=== PATIENT | male | born 2000 | race Caucasian/White ===

== ENCOUNTER 2019-12-01 18:15 | Emergency (ER) | payer BC, SELFPAY ==
--- NOTE | ~2019-12-01 | XR_ITS ---
EXAMINATION: XR wrist RT min 3V INDICATION: Right wrist pain TECHNIQUE: Four views of the right wrist are obtained. COMPARISON: None available FINDINGS: There is no fracture, dislocation, or subluxation. The bones, soft tissues, and joint space s are normal. IMPRESSION: 1. No acute osseous abnormality. Reviewed, dictated and finalized at location A.
--- NOTE | 2019-12-01 18:26 | ED.UPPEXIN ---
HPI - Extremity Injury (Upper) General Chief Complaint: Extremity Injury, Upper Stated Complaint: right wrist pain Time Seen by Provider: 12/01/19 18:26 Source: patient and RN notes reviewed History of Present Illness HPI narrative: Patient is a 19-year-old male that presents the urgent care with complaints of right wrist pain. Patient states he fell at approximately 5 PM this evening while rollerskating. Patient states he has a history of a fracture as well as a right wrist sprain in the past. Patient has been wearing his old wrist splint to the right wrist. Denies any [id number] medication for his pain. No other acute complaints. Denies hitting his head or any loss of consciousness during the fall. No acute distress noted. Patient read the plan of care. Related Data Home Medications Medication Instructions Recorded Confirmed No Home Medications 12/01/19 12/01/19 Allergies Allergy/AdvReac Type Severity Reaction Status Date / Time No Known Allergies Allergy Unverified 05/03/12 16:29 Review of Systems Review of Systems: Narrative: CONSTITUTIONAL: Denies fever, chills, or sweats. EYES: Denies visual changes, redness, or discharge. ENT: Denies rhinorrhea, congestion, sore throat, or otalgia. CARDIOVASCULAR: Denies chest pain, palpitations, or edema. RESPIRATORY: Denies cough or dyspnea. GASTROINTESTINAL: Denies abdominal pain, nausea, vomiting, or diarrhea. GENITOURINARY: Denies dysuria or hematuria. SKIN: Denies rash or itching. MUSCULOSKELETAL: Reports of right wrist pain due to fall NEUROLOGIC: Denies headache, numbness, or weakness. All other systems reviewed are negative, except as documented in HPI. PMFSH Comments At the time of my signature, I reviewed and agree with the nursing past medical, surgical, social, and family history. There is no relevant family history pertinent to the patient complaint. Exam Narrative: Exam Narrative: GENERAL: This is a well-nourished, well-developed patient, in no apparent distress. HEAD: normocephalic, atraumatic. EYES: PERRL. Sclera clear/white. Vision is grossly intact. EARS: External ears normal NOSE: External nose normal with no obvious nasal discharge THROAT: Mucous membranes moist NECK: Neck supple SKIN: Notable abrasion to the ulnar dorsal aspect of the right hand and wrist NEURO: awake, alert, and oriented to person, place and time. There were no obvious focal neurologic abnormalities. EXTREMITIES: No obvious edema, fracture, dislocation, ecchymosis noted to the right wrist. Range of motion within normal limits. Positive strong right radial pulse with capillary refill less than 2 seconds. Course Vital Signs Vital signs: Vital Signs Temperature 97.8 F 12/01/19 18:31 Pulse Rate 70 12/01/19 18:31 Respiratory Rate 18 12/01/19 18:31 Blood Pressure 133/63 12/01/19 18:31 Pulse Oximetry 100 12/01/19 18:31 Temperature 97.8 F 12/01/19 18:31 Pulse Rate 70 12/01/19 18:31 Respiratory Rate 18 12/01/19 18:31 Blood Pressure 133/63 12/01/19 18:31 Pulse Oximetry 100 12/01/19 18:31 Reviewed MDM - Extremity Injury (Upper) MDM Narrative Medical decision making narrative: Reviewed x-ray results with the patient. He is aware that there is no fracture or abnormality noted on the x-ray of the right wrist. Advised the patient to continue using his right wrist splint or an Rafa wrap for comfort and stability. Elevate and use ice. Use ibuprofen/Tylenol as needed for pain. Avoid any heavy lifting or extreme pushing and pulling to cause irritation to the injured right wrist. Follow-up with your PCP within 2 to 5 days or for worsening symptoms or failure to improve. Differential Diagnosis Differential diagnosis: Likely sprain and strain of wrist, fracture of wrist, finger sprain, dislocation of finger and fracture of hand Imaging Data Radiologist's impression: [facility] [address] [place] [address] X
[2019-12-01 18:31] VITALS: BP 133/63; PULSE 70; RESP 18; TEMP 36.6; O2SAT 100
== END 2019-12-01 18:55 | disposition home or self-care (01) ==
PROVIDERS: Emergency Provider Nurse Practitioner Family; PCP Pediatrics
DX: S66.811A Strain of other specified muscles, fascia and tendons at wrist and hand level, right hand, initial encounter (principal); V00.128A Other non-in-line roller-skating accident, initial encounter
CPT/HCPCS: 73110; 99203; G0463